=== PATIENT | male | born 1985 | race Caucasian/White ===

== ENCOUNTER 2017-04-21 17:28 | Emergency (ER) | payer OTHER ==
--- NOTE | 2017-04-29 18:56 | ER ---
ADMIT: 04/21/2017 RM/LOC: ER [facility] MR#: [id number] [address] [id number] [address] [place] [address] Emergency Room Report SEX: M AGE: 31 : 1985 DATE: 04/21/2017 ADDENDUM: This patient comes into the ER because he is having severe abdominal pain that started 2 hours ago. It is on the right side of his belly. At home, he said he had a temperature of 104 degrees, and the pain does go a little bit into the back. When he gets to the ER, his pain is decreased, and after being here an hour, his pain has gone. His CBC, BMP, and urinalysis were normal. He was given Toradol IM. I talked at length with the patient and his mother about the results of our labs, and since his pain had resolved, he may be discharged. He does have an appointment with Dr. Balderas tomorrow and he should keep that appointment if he is not feeling better. Please see my T-sheet. FALGUNI Felix / Vipul Monahan MD / gabby JOB #: [id number] CC: Vipul Monahan MD, Attending Physician Kehinde Balderas MD, Family Physician
== END 2017-04-21 19:51 | disposition home or self-care (01) ==
LOC: ER 17:28
DX: R10.9 Unspecified abdominal pain (principal); R11.0 Nausea